=== PATIENT | female | born 1950 | race Caucasian/White ===

== ENCOUNTER 2019-05-27 11:00 | Outpatient (CLI) | payer MEDICARE, OTHER | END 2019-05-27 23:59 | disposition home or self-care (01) | LOC: RAD 11:00 | PROVIDERS: ATTEND Neurological Surgery | DX: M41.85 Other forms of scoliosis, thoracolumbar region (principal); M51.34 Other intervertebral disc degeneration, thoracic region | CPT/HCPCS: 72082 ==